=== PATIENT | female | born 1990 | race Two or more races ===

== ENCOUNTER → 2018-08-30 | Outpatient (CLI) | payer OTHER | END | disposition home or self-care (01) | LOC: LAB 12:32 | DX: J11.1 Influenza due to unidentified influenza virus with other respiratory manifestations (principal); J11.81 Influenza due to unidentified influenza virus with encephalopathy ==

== ENCOUNTER 2020-02-07 11:04 | Outpatient (CLI) | payer OTHER ==
[2020-02-07] MEDS ORDERED: PANTOPRAZOLE SO40 MG (13:48)
[2020-02-07] MEDS ORDERED: LEVOTHYROXINE25 MCG (13:48)
[2020-02-07] MEDS ORDERED: AMLODIPINE-OLM1 EACH (13:49)
== END 2020-02-07 11:17 | disposition home or self-care (01) ==
LOC: SONOGRAMA 11:04
PROVIDERS: ATTEND Otolaryngology
DX: R22.1 Localized swelling, mass and lump, neck (principal)

== ENCOUNTER → 2020-02-07 | Outpatient (CLI) | payer OTHER ==
[~2020-02-07] VITALS: Ht 172.7 cm; Wt 113.4 kg
[~2020-02-07] MED LIST: AMLODIPINE-OLM1 EACH; LEVOTHYROXINE25 MCG; PANTOPRAZOLE SO40 MG
== END | disposition home or self-care (01) ==
LOC: OFIC 805 09:15
PROVIDERS: ATTEND Otolaryngology
DX: J03.81 Acute recurrent tonsillitis due to other specified organisms (principal); R22.1 Localized swelling, mass and lump, neck; E03.8 Other specified hypothyroidism

== ENCOUNTER 2020-02-29 14:14 | Outpatient (CLI) | payer OTHER | END 2020-02-29 15:30 | disposition home or self-care (01) | LOC: OFIC 805 14:14 | PROVIDERS: ATTEND Otolaryngology | DX: E03.8 Other specified hypothyroidism (principal); J03.80 Acute tonsillitis due to other specified organisms; R59.0 Localized enlarged lymph nodes ==

== ENCOUNTER 2020-03-07 11:56 | Outpatient (CLI) | payer OTHER | END 2020-03-07 12:04 | disposition home or self-care (01) | LOC: SONOGRAMA 11:56 | PROVIDERS: ATTEND Pathology Anatomic Pathology & Clinical Pathology | DX: R59.0 Localized enlarged lymph nodes (principal) ==